=== PATIENT | male | born 1995 | race Two or more races ===

== ENCOUNTER 2017-06-02 09:59 | Emergency (ER) | payer OTHER ==
[2017-06-02 10:04] VITALS: BP 138/86; PULSE 65; RESP 16; TEMP 98.1; O2SAT 98
--- NOTE | 2017-06-02 10:46 | EDPHY ---
H & P Time Seen by Provider: 06/02/17 10:16 HPI/ROS: CHIEF COMPLAINT: Mole nape of neck HISTORY OF PRESENT ILLNESS: 22-year-old male presents to the emergency department after he was advised by warned her to come to the emergency department for possible mold biopsy. The patient is from [place] apparently his insurance only works in the state [facility]. He was seen at work [place] for something and they noticed a mole that he was advised to have biopsied. Patient has no complaints. No family history of known skin cancer. He does not know if there have been any changes to the mole since it is the posterior aspect of his neck. ROS: Denies headache, skin changes. Past Medical/Surgical History: Negative Social History: Single Smoking Status: Never smoked Physical Exam: On examination the patient has a small less than 5 mm palpable nevus. There is no redness. There is no bleeding noted. It is flesh colored. No irregular borders. It is near the hairline. Constitutional: Initial Vital Signs Temperature (C) 36.7 C 06/02/17 10:01 Heart Rate 65 06/02/17 10:01 Respiratory Rate 16 06/02/17 10:01 Blood Pressure 138/86 H 06/02/17 10:01 O2 Sat (%) 98 06/02/17 10:01 O2 Delivery Mode Room Air Allergies/Adverse Reactions: No Known Allergies Allergy (Unverified 06/02/17 10:01) Home Medications: Medication Instructions Recorded NK [No Known Home Meds] 06/02/17 MDM/Departure - MDM ED Course/Re-evaluation: I explained to the patient that mo biopsies are not performed in the emergency department. I did refer him to 3 it admin in [place]. He may also follow up with a primary care provider who might be able to perform a punch biopsy for him as well. The hospice case manager helping to arrange follow-up. Patient is comfortable with this. - Depart Disposition: Home, Routine, Self-Care Clinical Impression: mole Condition: Good Instructions: Atypical Mole (ED) Additional Instructions: Follow up with a it admin as discussed. Referrals: Mahsa Simpson MD [Medical Doctor] - As per Instructions ([employer] in [place]) Alison Ann MD [Medical Doctor] - As per Instructions ([employer] in [place]) DAYANARA DORAN [Medical Doctor] - As per Instructions ([employer] in [place])
== END 2017-06-02 10:53 | disposition home or self-care (01) ==
DX: D22.9 Melanocytic nevi, unspecified (principal)